=== PATIENT | male | born 1955 | race Caucasian/White ===

== ENCOUNTER 2016-12-17 09:05 | Day surgery (SDC) | payer OTHER ==
--- NOTE | 2016-12-16 17:20 | PREOPHP ---
DATE OF ADMISSION: 12/17/2016 HISTORY OF PRESENT ILLNESS: A 61-year-old male patient seen in the office September 2016 for a right facial swelling. Examination at this time demonstrates a possible right facial tumor versus cystic mass. This has been progressively enlarging and patient now admitted to the hospital for elective surgical excision. ALLERGIES: NONE. PAST MEDICAL HISTORY: Medical conditions of diabetes, high blood pressure. MEDICATIONS: 1. Glipizide. 2. Losartan. 3. Potassium. 4. Insulin. PRIOR SURGERY: None. CLOTTING DISORDERS: None. HABITS: Alcohol: None. Tobacco: Occasional. Recreational drugs: None. FAMILY HISTORY/REVIEW OF SYSTEMS: Noncontributory. PHYSICAL EXAMINATION: GENERAL: Well-developed, well-nourished male patient in no acute distress. HEENT: Head is normocephalic. No masses or deformities. Ears and tympanic membranes are normal. Nose clear. Oropharynx clear. NECK: There is a 3-cm somewhat fluctuant right submandibular mass, which is non-mobile and nontender. CHEST: Clear to P and A. HEART: Regular sinus rhythm without murmur. ABDOMEN: Soft. Bowel sounds normal. No masses or megaly. EXTREMITIES: Full range of motion without deformity. NEUROLOGIC: Physiologic. RECTAL: Not done. IMPRESSION: Right facial mass. RECOMMENDATION: Admit for surgery. Dictated By: Sadiq Argueta MD /maribel/ruthie /Document#: [id number]
[2016-12-17] VITALS (12 sets, daily range): BP systolic 124–144; BP diastolic 68–78; PULSE 66–86; RESP 16–24; Ht 165.1 cm; Wt 73.6 kg
[~2016-12-17] VITALS: Ht 165.1 cm; Wt 73.6 kg
[~2016-12-17 09:05] MED LIST: MTF1000T PO
[2016-12-17] MEDS ORDERED: GLIP-95 PO (09:51)
[2016-12-17] MEDS ORDERED: LANT3I SC (09:52)
[2016-12-17] MEDS ORDERED: LOSA50TA6 PO (09:52)
[2016-12-17] MEDS ORDERED: LIDOCAINE 2%/EPI 30 ML INJ ONE (11:42)
[2016-12-17] MEDS ORDERED: NEOSTIGMINE 3 MG/3 ML SYRINGE ONE (12:16)
[2016-12-17] MEDS ORDERED: DEXAMETHASONE 4 MG/ML 1 ML INJ ONE (12:16)
[2016-12-17] MEDS ORDERED: ROCURONIUM 50 MG INJ ONE (12:16)
[2016-12-17] MEDS ORDERED: MIDAZOLAM 1 MG/ML 2 ML INJ ONE (12:16)
[2016-12-17] MEDS ORDERED: CEFAZOLIN 1 GM INJ ONE (12:16)
[2016-12-17] MEDS ORDERED: ONDANSETRON 4 MG INJ ONE (12:16)
[2016-12-17] MEDS ORDERED: PROPOFOL 20 ML ONE (12:16)
[2016-12-17] MEDS ORDERED: FENTAnyl 50 MCG/ML VIAL ONE (12:16)
[2016-12-17] MEDS ORDERED: GLYCOPYRROLATE 0.4 MG INJ ONE (12:16)
--- NOTE | 2016-12-17 12:56 | SIPON ---
Date/Time of Note Date/Time of Note DATE: 12/17/16 TIME: 12:52 Operative Report Preoperative Diagnosis right neck mass Postoperative Diagnosis same Operation/Procedure Performed excision right neck mass Surgeon: JADEN STANLEY MD Anesthesia Type: general Estimated Blood Loss: 0 - 10 ml's Transfusion Required: no Specimens to pathology Grafts/Implants: none Complications: no JADEN STANLEY MD Dec 17, 2016 12:56
[2016-12-17] MEDS ORDERED: HYDROmorphONE (0.2 MG/ML) 10ML SYG IV PRN ×3 (13:00)
[2016-12-17] MEDS ORDERED: MIDAZOLAM 1 MG/ML 2 ML INJ IV PRN (13:00)
[2016-12-17] MEDS ORDERED: ALBUTEROL 0.083% (NEB) 2.5 MG/3 ML AMP HHN PRN (13:00)
[2016-12-17] MEDS ORDERED: FENTAnyl 50 MCG/ML VIAL IV PRN ×3 (13:00)
[2016-12-17] MEDS ORDERED: EPHEDrine SULFATE 50 MG/5 ML SYG IV PRN (13:00)
[2016-12-17] MEDS ORDERED: IPRATROPIUM (NEB) 0.5 MG/2.5 ML AMP HHN PRN (13:00)
[2016-12-17] MEDS ORDERED: DIPHENHYDRAMINE 50 MG INJ IV PRN (13:00)
[2016-12-17] MEDS ORDERED: MEPERIDINE 25 MG INJ IV PRN (13:00)
[2016-12-17] MEDS ORDERED: OXYCODONE/ACETAMINOPHEN (5/325) TAB PO PRN ×2 (13:00)
[2016-12-17] MEDS ORDERED: TRIMETHOBENZAMIDE 100 MG/ML VIAL IM PRN (13:00)
[2016-12-17] MEDS ORDERED: ONDANSETRON 4 MG INJ IV PRN (13:00)
[2016-12-17] MEDS ORDERED: hydrALAzine 20 MG INJ IV PRN (13:00)
[2016-12-17] MEDS ORDERED: LABETALOL HCL 20MG INJ IV PRN (13:00)
[2016-12-17] MEDS ORDERED: HYDROCODONE/APAP (7.5/325) TAB PO PRN (13:30)
--- NOTE | 2016-12-18 16:28 | OPR ---
DATE OF OPERATION: 12/17/2016 PREOPERATIVE DIAGNOSIS: Right neck mass. POSTOPERATIVE DIAGNOSIS: Right neck mass. OPERATION PERFORMED: Excision of right neck mass with rotation advancement flap closure. OPERATIVE PROCEDURE: Patient brought to the operating room under parental sedation, general oral endotracheal anesthesia, with the patient in the supine position. Sterile sheets and drapes applied. A firm, nontender, somewhat cystic mass was noted in the right submandibular region. This appeared possibly to be a cyst. There was considerable adherence of the lesion to the skin. The area about the lesion was localized with Xylocaine 1 percent, epinephrine 1:100,000. Skin excision measuring approximately 3 x 2.5 cm in diameter was marked and outlined and number 15 blade made for skin incision. Bleeding points were electrocoagulated for hemostasis. Using blunt and sharp dissection, the lesion which appeared to be cystic was bluntly and sharply circumscribed and removed and sent for pathologic evaluation. Further bleeding points were coagulated for hemostasis. Because of the dimension of the skin excision it was felt that a rotation advancement flap was required for closure. A secondary incision was made inferoposteriorly creating a rotation advancement flap. This was undermined bluntly and sharply. Bleeding points were electrocoagulated for hemostasis. The rotation flap was then rotated into position and closure was begun with multiple interrupted 4-0 chromic suture. Final closure was carried out with multiple interrupted 5-0 nylon. A light pressure dressing was applied to complete the procedure. The patient was awakened and extubated in the operating room, returned to recovery in excellent condition. ESTIMATED BLOOD LOSS: 5-10 mL. COMPLICATIONS: None. Dictated By: Sadiq Argueta MD /maribel/adry Morris#: [id number]/Document#: [id number]
== END 2016-12-17 14:31 | disposition home or self-care (01) ==
LOC: SDS 09:05
PROVIDERS: ATTEND Otolaryngology Otolaryngology/Facial Plastic Surgery
DX: L72.0 Epidermal cyst (principal); E11.9 Type 2 diabetes mellitus without complications; I10 Essential (primary) hypertension
CPT/HCPCS: 14040; 82962; 88304; J1100; J2250; J2405; J3010; J0690; J2710